=== PATIENT | female | born 1970 | race Two or more races ===

== ENCOUNTER 2018-11-01 03:34 | Emergency (ER) | payer MEDICAID ==
[~2018-11-01] VITALS: Ht 165.1 cm; Wt 83.9 kg
[2018-11-01 06:51] VITALS: BP 166/97
== END 2018-11-01 07:13 | disposition home or self-care (01) ==
LOC: ER 03:34
DX: J02.9 Acute pharyngitis, unspecified (principal); J45.909 Unspecified asthma, uncomplicated
CPT/HCPCS: 71046

== ENCOUNTER 2021-11-12 04:11 | Emergency (ER) | payer MEDICAID ==
[~2021-11-12] VITALS: Ht 157.5 cm; Wt 72.0 kg
[2021-11-12 04:31] LABS: Urine WBC None Seen /hpf (0 - 5)
[2021-11-12 05:02] LABS: Urine Bacteria NONE SEEN /hpf (None Seen); Urine Blood Negative /uL (Negative); Urine Specific Gravity 1.005 (1.001-1.035)
[2021-11-12 05:37] LABS: Basophils # (auto) 0 10 ^3/uL (0-0.2); Basophils % (auto) 0.5 % (0.0-2.0); Eosinophils # (auto) 0 10 ^3/uL (0-0.8); Eosinophils % (auto) 0.5 % (0.0-7.0); Hematocrit 39.1 % (36.0-46.0); Hemoglobin 13.6 g/dL (12.2-16.2); Lymphocytes # (auto) 1.4 10 ^3/uL (0.4-5.4); Lymphocytes % (auto) 18.4 % (10.0-50.0); Mean Corpuscular Hemoglobin 32.4 pg (28.0-32.0); Mean Corpuscular Hgb Conc. 34.8 g/dL (32.0-36.0); Monocytes # (auto) 0.2 10 ^3/uL (0-1.3); Monocytes % (auto) 3.1 % (0.0-12.0); Neutrophils % (auto) 77.5 % (37.0-80.0); Red Blood Cells 4.21 10^6/uL (4.0-5.20); Red Cell Distribution Width 12.1 % (11.8-14.3); White Blood Cell 7.7 10^3/uL (4.4-10.8)
[2021-11-12 05:59] LABS: Albumin 3.9 g/dL (3.4-5.0); BUN/Creatinine Ratio 19.7; Calcium 8.7 mg/dL (8.5-10.1); Potassium 3.6 mmol/L (3.5-5.1)
[2021-11-12 06:01] LABS: Bilirubin, Total 0.6 mg/dL (0.2-1.0); Total Protein 7.7 g/dL (6.4-8.2)
[2021-11-12] MEDS ORDERED: LACTATED RINGER'S 1,000 ML IV ONE (11:15)
[2021-11-12] MEDS ORDERED: MAA30LQ GT (12:55)
[2021-11-12] MEDS ORDERED: ONDA-155 PO (12:55)
[2021-11-12] MEDS ORDERED: FAMO20TA10 PO (12:55)
[2021-11-12 13:00] VITALS: BP 136/81
== END 2021-11-12 13:06 | disposition home or self-care (01) ==
LOC: ER 04:11
DX: R07.89 Other chest pain (principal); R10.13 Epigastric pain; J45.909 Unspecified asthma, uncomplicated
CPT/HCPCS: 36415; 80053; 81001; 82962; 84484; 85025; 93005; 96360

== ENCOUNTER 2021-12-21 15:05 | Inpatient (IN) | payer MEDICAID ==
[~2021-12-21] VITALS: Ht 170.2 cm; Wt 94.8 kg
[~2021-12-21 15:05] MED LIST: FAMO20TA10 PO; MAA30LQ GT; ONDA-155 PO
[2021-12-21] MEDS ORDERED: SODIUM CHLORIDE 0.9% 500 ML IVB ONE (15:45)
[2021-12-21] MEDS ORDERED: ONDANSETRON HCL 4 MG/2 ML VIAL IV ONE (15:45)
[2021-12-21] MEDS ORDERED: MORPHINE SULFATE 4 MG/ML SYR/VIAL IV ONE (15:45)
[2021-12-21 16:02] LABS: Basophils # (auto) 0 10 ^3/uL (0-0.2); Basophils % (auto) 0.6 % (0.0-2.0); Eosinophils # (auto) 0 10 ^3/uL (0-0.8); Eosinophils % (auto) 0.8 % (0.0-7.0); Hematocrit 38.3 % (36.0-46.0); Hemoglobin 13.1 g/dL (12.2-16.2); Lymphocytes # (auto) 1.9 10 ^3/uL (0.4-5.4); Lymphocytes % (auto) 31.8 % (10.0-50.0); Mean Corpuscular Hemoglobin 31.9 pg (28.0-32.0); Mean Corpuscular Hgb Conc. 34.2 g/dL (32.0-36.0); Mean Corpuscular Volume 93.4 fL (80.0-100.0); Monocytes # (auto) 0.4 10 ^3/uL (0-1.3); Monocytes % (auto) 6.3 % (0.0-12.0); Neutrophils # (auto) 3.7 10 ^3/uL (1.6-8.6); Neutrophils % (auto) 60.5 % (37.0-80.0); Nucleated Red Blood Cells % 0.1 %; Red Cell Distribution Width 12.2 % (11.8-14.3); White Blood Cell 6.1 10^3/uL (4.4-10.8)
[2021-12-21 16:18] LABS: Albumin 3.6 g/dL (3.4-5.0); BUN/Creatinine Ratio 12.2; Calcium 8.8 mg/dL (8.5-10.1); Potassium 3.4 mmol/L (3.5-5.1)
[2021-12-21 16:20] LABS: INR 0.92 (0.9-1.15); Partial Thromboplastin Time 24.8 sec (24.6-33.4)
[2021-12-21 16:26] LABS: Urine Bacteria NONE SEEN /hpf (None Seen); Urine Blood Negative /uL (Negative); Urine Mucus FEW (None Seen); Urine Specific Gravity 1.024 (1.001-1.035); Urine WBC 1 /hpf (0 - 5)
[2021-12-21 16:28] LABS: Bilirubin, Total 0.5 mg/dL (0.2-1.0); Total Protein 7.5 g/dL (6.4-8.2)
[2021-12-21] MEDS ORDERED: ONDANSETRON HCL 4 MG/2 ML VIAL IV PRN (21:45)
[2021-12-21] MEDS ORDERED: MORPHINE SULFATE INJ 2 MG/ml SYRG IV PRN ×2 (21:45→23:30)
[2021-12-21] MEDS ORDERED: TEMAZEPAM 15 MG CAP PO PRN (21:45)
[2021-12-21] MEDS ORDERED: NITROGLYCERIN 0.4 MG SL TAB SL PRN (23:30)
[2021-12-22] MEDS: SOD CHL 0.45% 1,000 ML IV SCH ×3 (02:04→23:45)
[2021-12-22 06:10] LABS: Basophils # (auto) 0 10 ^3/uL (0-0.2); Basophils % (auto) 0.5 % (0.0-2.0); Eosinophils # (auto) 0.1 10 ^3/uL (0-0.8); Eosinophils % (auto) 1.3 % (0.0-7.0); Hematocrit 38.7 % (36.0-46.0); Hemoglobin 13.4 g/dL (12.2-16.2); Lymphocytes # (auto) 1.7 10 ^3/uL (0.4-5.4); Lymphocytes % (auto) 29.3 % (10.0-50.0); Mean Corpuscular Hemoglobin 32.8 pg (28.0-32.0); Mean Corpuscular Hgb Conc. 34.7 g/dL (32.0-36.0); Mean Corpuscular Volume 94.3 fL (80.0-100.0); Monocytes # (auto) 0.3 10 ^3/uL (0-1.3); Monocytes % (auto) 5.7 % (0.0-12.0); Neutrophils # (auto) 3.7 10 ^3/uL (1.6-8.6); Neutrophils % (auto) 63.2 % (37.0-80.0); Red Cell Distribution Width 12.7 % (11.8-14.3); White Blood Cell 5.8 10^3/uL (4.4-10.8)
[2021-12-22 06:21] LABS: Potassium 3.7 mmol/L (3.5-5.1)
[2021-12-22 06:28] LABS: Albumin 3.8 g/dL (3.4-5.0); BUN/Creatinine Ratio 20.3; Bilirubin, Total 0.9 mg/dL (0.2-1.0); Total Protein 7.3 g/dL (6.4-8.2)
[2021-12-22 19:00] VITALS: BP 126/69
[2021-12-22 19:05] VITALS: BP 126/69
[2021-12-22] MEDS: FAMOTIDINE (10MG/ML) 2ML VL IV SCH (21:24)
[2021-12-22] MEDS: cefTRIAXone 1GM/50ML D5W 50 ML IV SCH (21:25)
[2021-12-22 22:47] VITALS: BP 126/69
[2021-12-23] MEDS: SOD CHL 0.45% 1,000 ML IV SCH (00:25)
[2021-12-23 05:28] VITALS: BP 102/55
[2021-12-23 05:40] LABS: Alcohol, Urine < 3.0 mg/dL (0-10); Amphetamine Screen, Urine NEGATIVE (NEGATIVE); Barbiturate Scree,Urine NEGATIVE (NEGATIVE); Benzodiazephine Screen, Urine NEGATIVE (NEGATIVE); Cannabinoid Screen, Urine NEGATIVE (NEGATIVE); Cocaine Screen, Urine NEGATIVE (NEGATIVE); Opiate Scree,Urine NEGATIVE (NEGATIVE); Phencyclidine Screen, Urine NEGATIVE (NEGATIVE)
[2021-12-23 06:56] LABS: Basophils # (auto) 0 10 ^3/uL (0-0.2); Basophils % (auto) 0.4 % (0.0-2.0); Eosinophils # (auto) 0.1 10 ^3/uL (0-0.8); Eosinophils % (auto) 1.2 % (0.0-7.0); Hematocrit 36.7 % (36.0-46.0); Hemoglobin 13.2 g/dL (12.2-16.2); Lymphocytes # (auto) 1.6 10 ^3/uL (0.4-5.4); Lymphocytes % (auto) 26.3 % (10.0-50.0); Mean Corpuscular Hemoglobin 33.2 pg (28.0-32.0); Mean Corpuscular Hgb Conc. 35.9 g/dL (32.0-36.0); Mean Corpuscular Volume 92.4 fL (80.0-100.0); Monocytes # (auto) 0.3 10 ^3/uL (0-1.3); Monocytes % (auto) 5.4 % (0.0-12.0); Neutrophils % (auto) 66.7 % (37.0-80.0); Nucleated Red Blood Cells % 0.2 %; Red Blood Cells 3.98 10^6/uL (4.0-5.20); Red Cell Distribution Width 12.2 % (11.8-14.3)
[2021-12-23 07:07] LABS: Potassium 3.5 mmol/L (3.5-5.1)
[2021-12-23 07:08] LABS: INR 0.97 (0.9-1.15); Partial Thromboplastin Time 25.1 sec (24.6-33.4)
[2021-12-23 07:11] LABS: Albumin 3.4 g/dL (3.4-5.0); BUN/Creatinine Ratio 12.1; Calcium 8.4 mg/dL (8.5-10.1)
[2021-12-23 07:14] LABS: Bilirubin, Total 0.9 mg/dL (0.2-1.0); Total Protein 6.9 g/dL (6.4-8.2)
[2021-12-23 09:07] VITALS: BP 114/69
[2021-12-23] MEDS: FAMOTIDINE (10MG/ML) 2ML VL IV SCH (09:20)
[2021-12-23] MEDS: cefTRIAXone 1GM/50ML D5W 50 ML IV SCH (09:20)
[2021-12-23] MEDS ORDERED: MIDAZOLAM HCL 2MG/2ML 2ml VIAL (1mg/ml) ONE (09:56)
[2021-12-23] MEDS ORDERED: fentaNYL CITRATE 100 MCG/2 ML VL ONE (09:56)
[2021-12-23] MEDS ORDERED: ceFAZolin 1GM/50ML 100 ML IV ONE (10:11)
[2021-12-23] MEDS ORDERED: ONDANSETRON HCL 4 MG/2 ML VIAL ONE (10:49)
[2021-12-23] MEDS ORDERED: PROPOFOL 10 MG/ML 20 ML IV ONE (10:49)
[2021-12-23] MEDS ORDERED: DexAMETHasone SOD PHOS 10MG/1ML VIAL INJ ONE (10:49)
[2021-12-23] MEDS ORDERED: LIDOCAINE 2% (LOCAL ANESTH.) PF 5ml SDV ONE (10:49)
[2021-12-23] MEDS ORDERED: METOCLOPRAMIDE HCL 5MG/ml INJ 2ml VIAL ONE (10:49)
[2021-12-23] MEDS ORDERED: GLYCOPYRROLATE 0.2 MG/ML 1ML VIAL ONE (12:02)
[2021-12-23] MEDS ORDERED: HYDROmorphone HCL 2 MG/ML VL/or syr IV PRN (12:15)
[2021-12-23] MEDS ORDERED: ONDANSETRON HCL 4 MG/2 ML VIAL IV PRN (12:15)
[2021-12-23] MEDS: HYDROmorphone HCL 2 MG/ML VL/or syr IV PRN ×2 (13:05→13:22)
[2021-12-23 14:15] VITALS: BP 137/79
[2021-12-23] MEDS: metroNIDAZOLE 500MG/100ML 100 ML IV SCH ×2 (16:00→23:47)
[2021-12-23] MEDS: D5W/SOD CHL 0.45%/KCL 20MEQ 1,000 ML IV SCH ×2 (16:30→22:15)
[2021-12-23 16:31] VITALS: BP 121/77
[2021-12-23] MEDS: IBUPROFEN 600 MG TAB PO PRN (17:44)
[2021-12-23 22:00] VITALS: BP 125/63
[2021-12-24 05:00] VITALS: BP 114/66
[2021-12-24 05:35] LABS: Basophils # (auto) 0.1 10 ^3/uL (0-0.2); Basophils % (auto) 1.3 % (0.0-2.0); Eosinophils # (auto) 0 10 ^3/uL (0-0.8); Hematocrit 36.8 % (36.0-46.0); Lymphocytes # (auto) 1.2 10 ^3/uL (0.4-5.4); Lymphocytes % (auto) 14.3 % (10.0-50.0); Mean Corpuscular Hemoglobin 32.4 pg (28.0-32.0); Mean Corpuscular Hgb Conc. 35.2 g/dL (32.0-36.0); Monocytes # (auto) 0.5 10 ^3/uL (0-1.3); Monocytes % (auto) 5.4 % (0.0-12.0); Neutrophils # (auto) 6.7 10 ^3/uL (1.6-8.6); Red Blood Cells 4.01 10^6/uL (4.0-5.20); Red Cell Distribution Width 12.1 % (11.8-14.3); White Blood Cell 8.5 10^3/uL (4.4-10.8)
[2021-12-24 05:52] LABS: Potassium 4.1 mmol/L (3.5-5.1)
[2021-12-24 06:06] LABS: Albumin 3.5 g/dL (3.4-5.0); BUN/Creatinine Ratio 16.1; Bilirubin, Total 0.7 mg/dL (0.2-1.0); Calcium 8.9 mg/dL (8.5-10.1); Total Protein 6.9 g/dL (6.4-8.2)
[2021-12-24] MEDS: metroNIDAZOLE 500MG/100ML 100 ML IV SCH (06:25)
[2021-12-24] MEDS ORDERED: cefTRIAXone 1GM/50ML D5W 50 ML IV SCH (09:00)
[2021-12-24 09:02] VITALS: BP 127/66
[2021-12-24] MEDS: D5W/SOD CHL 0.45%/KCL 20MEQ 1,000 ML IV SCH (09:27)
[2021-12-24] MEDS: PANTOPRAZOLE 40 MG/10 ML VIAL INJ IV SCH (10:03)
[2021-12-24] MEDS: FAMOTIDINE (10MG/ML) 2ML VL IV SCH (10:03)
[2021-12-24 12:31] VITALS: BP 123/71
[2021-12-24 16:51] VITALS: BP 123/73
[2021-12-24] MEDS: IBUPROFEN 600 MG TAB PO PRN (19:37)
[2021-12-24 22:00] VITALS: BP 113/69
[2021-12-25] MEDS: IBUPROFEN 600 MG TAB PO PRN (03:04)
[2021-12-25 05:00] VITALS: BP 114/69
[2021-12-25 08:58] VITALS: BP_SYST 106; BP_SYST 92; BP_DIAS 52; BP_DIAS 65
[2021-12-25] MEDS: PANTOPRAZOLE 40 MG/10 ML VIAL INJ IV SCH (09:34)
[2021-12-25 12:52] VITALS: BP 114/62
[2021-12-25] MEDS ORDERED: IBU600T PO (13:17)
[2021-12-25 14:32] VITALS: BP 114/62
[2022-12-23] MEDS ORDERED: KETOROLAC TROMETH 30 MG/ML 1ML VIAL IV ONE (15:32)
[2022-12-23] MEDS ORDERED: ROCURONIUM 10MG/ML 10ML VIAL IV ONE (15:32)
== END 2021-12-25 15:26 | disposition home or self-care (01) | DRG 263 ==
LOC: ER 15:05 → OVERFLOW 23:19 → WEST WING 12-22 21:00
PROVIDERS: ADMIT Nurse Practitioner Family; ATTEND Hospitalist
PROC: 0FT44ZZ Resection of Gallbladder, Percutaneous Endoscopic Approach (ICD-10-PCS; principal; 2021-12-23 11:08)
DX: K80.00 Calculus of gallbladder with acute cholecystitis without obstruction (principal); K76.0 Fatty (change of) liver, not elsewhere classified; R16.0 Hepatomegaly, not elsewhere classified; E66.01 Morbid (severe) obesity due to excess calories; E87.6 Hypokalemia; J45.909 Unspecified asthma, uncomplicated; Z20.822 Contact with and (suspected) exposure to COVID-19; Z83.3 Family history of diabetes mellitus; Z68.32 Body mass index [BMI] 32.0-32.9, adult
CPT/HCPCS: 36415; 71045; 74176; 76705; 78226; 80053; 80307; 81001; 81025; 82150; 83690; 84702; 85025; 85610; 85730; 86850; 86900; 86901; 87426; 93005; 96361; 96365; 96375; C9113; G0378; J0690; J0696; J1100; J1885; J2001; J2250; J2405; J2704; J3490